=== PATIENT | female | born 1945 | race African-American/Black ===

== ENCOUNTER 2016-12-31 16:49 | Inpatient (IN) | payer OTHER ==
[~2016-12-31] VITALS: Ht 167.6 cm; Wt 84.8 kg
[2016-12-31 18:05] LABS: EOSINOPHIL (%) 2.1 % (0-5); EOSINOPHIL COUNT 0.1 K/uL (0-0.3); HEMATOCRIT 39.6 % (36.0-46.0); IMMATURE GRANULOCYTE (%) 0.3 % (0.0-0.7); INSTRUMENT ABS NEUTROPHIL CT 3.9 K/uL; LYMPHOCYTE COUNT 1.7 K/uL (1.0-2.8); MCH 27.4 PG (29.0-34.0); MCHC 34.3 G/DL (30.0-36.0); MCV 79.7 FL (83-99); MONOCYTE (%) 6.5 % (3-12); MONOCYTE COUNT 0.4 K/uL (0-0.8); NEUTROPHIL (%) 63.6 % (45-76); NEUTROPHIL COUNT 3.9 K/uL (1.8-6.4); PLATELET COUNT 220 K/uL (156-360); RBC DIS.WIDTH-CV 14.1 % (11.8-14.6); RBC DIS.WIDTH-SD 41.1 % (39-53); RED BLOOD COUNT 4.97 M/uL (3.80-5.20); WHITE BLOOD COUNT 6.2 K/uL (4.1-10.2)
[2016-12-31 18:13] LABS: CHLORIDE 104 mEq/L (99-109); POTASSIUM 4.2 mEq/L (3.7-5.4); SODIUM 141 mEq/L (136-147)
[2016-12-31 18:15] LABS: GLUCOSE 90 mg/dL (70-99)
[2016-12-31 18:16] LABS: ANION GAP 8 MEQ/L (2-14)
[2016-12-31 18:17] LABS: TOTAL BILIRUBIN 0.5 mg/dL (0.0-1.0)
[2016-12-31 18:18] LABS: ALKALINE PHOSPHATASE 63 IU/L (3-129); GFR ESTIMATE (CALCULATED) 52 mL/min/
[2016-12-31 18:20] LABS: UREA NITROGEN (BUN) 20 mg/dL (9-23)
[2016-12-31 18:22] LABS: LIPASE 96 U/L (1.0-51.0)
[2016-12-31 18:24] LABS: TROP-I INTERPRETATION NEGATIVE; TROPONIN-I 0.02 ng/mL (0.0-0.30)
[2016-12-31 19:26] LABS: ADD MIUA? YES; BILIRUBIN NEGATIVE; BLOOD NEGATIVE; COLOR YELLOW ((YELLOW)); GLUCOSE (STRIP) NEGATIVE; KETONES NEGATIVE; LEUKOCYTES LARGE; NITRITE NEGATIVE; PROTEIN (STRIP) 30; UROBILINOGEN 0.2 MG/DL (0.2-1.0)
[2016-12-31 19:33] LABS: BACTERIA 1+ /HPF; EPITHELIAL CELLS 3+ /HPF; MUCUS TRACE /LPF; UCUL ADDED? YES; WHITE BLOOD CELLS TNTC /HPF (0-5)
[2016-12-31] MEDS ORDERED: ADVIL,NUPRIN,M200 MG PO (21:09)
[2016-12-31] MEDS ORDERED: HIGH BLOOD PRESSURE (21:10)
[2016-12-31 23:50] VITALS: BP 160/92
[2017-01-01 01:23] LABS: TROP-I INTERPRETATION NEGATIVE; TROPONIN-I 0.03 ng/mL (0.0-0.30)
[2017-01-01 04:00] VITALS: BP 131/85
[2017-01-01 06:28] LABS: HEMATOCRIT 39.6 % (36.0-46.0); MCH 28.7 PG (29.0-34.0); MCHC 35.6 G/DL (30.0-36.0); MCV 80.7 FL (83-99); MEAN PLAT.VOLUME 10.6 uM^3 (9.5-12.4); PLATELET COUNT 206 K/uL (156-360); RBC DIS.WIDTH-CV 14.6 % (11.8-14.6); RED BLOOD COUNT 4.91 M/uL (3.80-5.20); WHITE BLOOD COUNT 7.6 K/uL (4.1-10.2)
[2017-01-01 06:55] LABS: ANION GAP 9 MEQ/L (2-14); CHLORIDE 106 MEQ/L (99-109); GFR ESTIMATE (CALCULATED) > 59 mL/min/; GLUCOSE 89 mg/dL (70-99); POTASSIUM 4.3 MEQ/L (3.7-5.4); SAMPLE HEMOLYSIS CHECK 0; SAMPLE ICTERIC CHECK 0; SAMPLE LIPEMIA CHECK 0; SODIUM 141 MEQ/L (136-147); UREA NITROGEN (BUN) 18 mg/dL (9-23)
[2017-01-01 07:25] VITALS: BP 191/108
[2017-01-01 07:30] LABS: TROP-I INTERPRETATION NEGATIVE; TROPONIN-I 0.04 ng/mL (0.0-0.30)
[2017-01-01 12:45] VITALS: BP 138/88
[2017-01-01 16:42] VITALS: BP 172/90
[2017-01-01 20:47] VITALS: BP 186/96
[2017-01-02] VITALS (10 sets, daily range): BP systolic 118–180; BP diastolic 76–102
[2017-01-03 03:14] VITALS: BP 136/89
[2017-01-03 06:19] LABS: ALKALINE PHOSPHATASE 46 IU/L (3-129); ANION GAP 9 MEQ/L (2-14); CHLORIDE 102 MEQ/L (99-109); GFR ESTIMATE (CALCULATED) 57 mL/min/; GLUCOSE 87 mg/dL (70-99); LIPASE 116 U/L (1.0-51.0); POTASSIUM 3.9 MEQ/L (3.7-5.4); SAMPLE HEMOLYSIS CHECK 0; SAMPLE ICTERIC CHECK 0; SAMPLE LIPEMIA CHECK 0; SODIUM 139 MEQ/L (136-147); TOTAL BILIRUBIN 0.6 MG/DL (0.0-1.0); UREA NITROGEN (BUN) 21 mg/dL (9-23)
[2017-01-03 07:08] VITALS: BP 161/94
[2017-01-03 11:25] VITALS: BP 163/94
[2017-01-03] MEDS ORDERED: APRESOLINE10 MG PO (11:41)
[2017-01-03] MEDS ORDERED: HYDROCHLOROTH12.5 M3 PO (11:42)
[2017-01-03] MEDS ORDERED: LOPRESSOR25 MG PO (11:42)
[2017-01-03] MEDS ORDERED: AMLODIPINE BESYL5 MG PO (11:44)
== END 2017-01-03 14:46 | disposition home or self-care (01) | DRG 305 ==
LOC: EME 16:49 → 5WEST 21:16 → EDOF 21:16 → ENRESERV 21:16 → EDOF 21:16 → ENRESERV 21:46 → 5WEST 23:34 → ENRESERV 01-01 12:38 → CANRESERV 01-01 13:45 → ENRESERV 01-01 13:45 → ENPENDDIS 01-03 → 5WEST 01-03 14:46
PROVIDERS: Emergency Medicine; Hospitalist; Physician Assistant Medical
DX: I10 Essential (primary) hypertension (principal); R10.13 Epigastric pain; R74.8 Abnormal levels of other serum enzymes; E66.9 Obesity, unspecified; K59.00 Constipation, unspecified; L29.9 Pruritus, unspecified; T36.1X5A Adverse effect of cephalosporins and other beta-lactam antibiotics, initial encounter; Z91.14 Patient's other noncompliance with medication regimen
CPT/HCPCS: 70450; 71010; 74177; 80048; 80053; 81003; 83605; 83690; 84484; 85025; 85027; 87086; 93005; 99281; 99285; G0378; J0360; J0696; J1644; J1885; J2405; J3010; J7030; J7050; S0028